=== PATIENT | male | born 1970 | race Caucasian/White ===

== ENCOUNTER 2025-03-30 00:26 | Day surgery (SDC) | payer BC, SELFPAY ==
[2025-03-26 14:15] VITALS: BMI 29.9
--- OUTSIDE RECORDS SUMMARY | 2025-03-30 00:30 | XMS_ITS | Patient Health Record ---
Author Organization [facility] Address [address] [facility] [address] [place] [address] Care Team Providers Care Assistant Nurse Manager Name Role Phone [employer] Unavailable [phone] Reason For Referral No Information Plan Of Treatment No Information
--- OUTSIDE RECORDS SUMMARY | 2025-03-30 00:30 | XMS_ITS | Data Portability ---
Author Organization [place] [facility] [employer], Main Office Address [address] [place] [address] Assessment Encounter Date Assessment Date Assessment LastModified by Organization Details LastModified Time 02/01/2023 02/01/2023 Ofloxacin eyedrops blood work alcohol and tobacco cessation congratulated him on tobacco cessation blood work reviewed and ordered follow-up in 6 months no eye contacts for 2 week [id number] Not available 02/01/2023 15:40:19 Plan of Treatment Reminders Order Date Submit Date Provider Last Modified By Organization Details Last Modified Time Details Appointments None recorded . Lab CBC w/ auto diff 023 02/02/20 23 [email or web address] [facility] (Lab), [address] [place], [address], 4 12:23:00 lipid panel, serum 023 02/02/20 23 [email or web address] [address] [facility] (Lab), [address] [place], [address], 4 12:23:01 CMP, serum or plasma 023 02/02/20 [email or web address] [address] [facility] (Lab), [address] [place], [address], 4 12:23:01 Referral None recorded . Procedures None recorded . Surgeries None recorded . Imaging None recorded . Medication Orders None recorded . Patient TargetsNo targets recorded. Patient InstructionsNo instructions recorded. Reason for Referral None Reported. Results Created Date Observation Date Name Description Value Unit Range Abnormal Flag Note LastModifiedBy Organization Detail LastModifiedTime 06/27/19 22 06/27/2021 PSA SCREE N PSA medicare screen 2.70 NG/mL 0.00-4 .00 Not Available [facility] (Lab) [address] [place], [address], 06/27/2021 16:44:30 06/27/19 22 06/27/2021 LIPID PANEL cholesterol 115 mg/dL 140-19 9 low NIH DELBERT NSUS RECOM MENDA TION FOR ALEX STERO L: ADULT CHILD LOW RISK: <200 <170 BORDE RLINE : <200- 239 ----- HIGH RISK: >240 >200 Not Available [facility] (Lab) [address] [place], [address], 06/27/2021 16:19:23 06/27/19 22 06/27/2021 LIPID PANEL triglyceride s 77 mg/dL 0-150 NIH DELBERT NSUS REPOR T RECOM MENDA TION FOR TRIGL YCERI NIRMAL: ADULT CHILD LOW RISK: <150 ----- BODER LINE: 150-1 99 ----- HIGH RISK: >200 ----- Not Available [facility] (Lab) [address] [place], [address], 06/27/2021 16:19:23 06/27/19 22 06/27/2021 LIPID PANEL HDL cholesterol 37 mg/dL 40- low Not Available [facility] (Lab) [address] [place], [address], 06/27/2021 16:19:23 06/27/19 22 06/27/2021 LIPID PANEL LDL cholesterol, calculated 63 mg/dL 0-130 NIH DELBERT NSUS REPOR T RECOM MENDA TIONS FOR LDL: ADULT CHILD LOW RISK <130 <110 (OPTI MAL LDL) <100 ----- BORDE RLINE : 130-1 59 ----- HIGH RISK: >160 >130 A TRIGL YCERI DE RESUL T >400 INVAL IDATE S THE CALCU LATIO N FOR LDL FRACT IONAT ION - THE LDL RESUL T WILL NOT BE REPOR DAY. Not Available [facility] (Lab) [address] [place], [address], 06/27/2021 16:19:23 06/27/19 22 06/27/2021 COMPR EHENS BINH METAB OLIC PANEL sodium 141 mmol/ L 137-14 5 Not Available [facility] (Lab) [address] [place], [address], 06/27/2021 16:19:19 06/27/19 22 06/27/2021 COMPR EHENS BINH METAB OLIC PANEL potassium 4.0 mmol/ L 3.5-5. 1 Not Available [facility] (Lab) [address] [facility] [place], [address], 06/27/2021 16:19:19 06/27/19 22 06/27/2021 COMPR EHENS BINH METAB OLIC PANEL chloride 103 mmol/ L 98-107 Not Available [facility] (Lab) [address] [place], [address], 06/27/2021 16:19:19 06/27/19 22 06/27/2021 COMPR EHENS BINH METAB OLIC PANEL carbon dioxide 28 mmol/ L 22-30 Not Available [facility] (Lab) [address] [place], [address], 06/27/2021 16:19:19 06/27/19 22 06/27/2021 COMPR EHENS BINH METAB OLIC PANEL agap 14.0 mmol/ L 14-22 Not Available [facility] (Lab) [address] [place], [address], 06/27/2021 16:19:19 06/27/19 22 06/27/2021 COMPR EHENS BINH METAB OLIC PANEL glucose 98 mg/dL 70-99 Not Available [facility] (Lab) [address] [place], [address], 06/27/2021 16:19:19 06/27/19 22 06/27/2021 COMPR EHENS BINH METAB OLIC PANEL BUN 9 mg/dL 8-19 Not Available [facility] (Lab) [address] [place], [address], 06/27/2021 16:19:19 06/27/19 22 06/27/2021 COMPR EHENS BINH METAB OLIC PANEL creatinine 1.07 mg/dL 0.66-1 .25 Not Available [facility] (Lab) [address] [place], [address], 06/27/2021 16:19:19 06/27/19 22 06/27/2021 COMPR EHENS BINH METAB OLIC PANEL GFR >60 Refer ence Range : Counce ge GFR Healt hy Adult : >60 mL/mi n/1.7 3 m2 Chron ic Kidne y Disea se: 15-60 mL/mi n/1.7 3 m2 Kidne y Failu re: <15/m L/min /1.73 m2 www.n iddk. nih.g ov The MDRD study equat ion has not been valid ated in child hamilton <18 years of age; pregn ant women ; the elder ly >85 years of age; or in some racia l or ethni c subgr oups, such as Hisnj nics. Outsi de the valid ated emeka eters , estim ated GFR is less accur ate, requi ring clini jose manuel judgm ent on a case- by-ca se basis . Clini jose manuel inter preta tion for other races and ages must be made by the clini basil. The MDRD study equat ion has not been valid ated for the evalu ation of serum creat inine relat ed to nutri connor l statu s or medic ation usage . For perso ns <18 years of age, a pedia tric GFR calcu lator is avail able on the F websi te: https ://alex kam.o ranjit/pr ofess ional s/kdo qi/gf r_cal culat or Not Available [facility] (Lab) [address] [place], [address], 06/27/2021 16:19:19 06/27/19 22 06/27/2021 COMPR EHENS BINH METAB OLIC PANEL alkaline phosphatase 78 U/L 38-126 Not Available [facility] (Lab) [address] [place], [address], 06/27/2021 16:19:19 06/27/19 22 06/27/2021 COMPR EHENS BINH METAB OLIC PANEL alanine aminotransfe rase 55 U/L 0-[address] [facility] (Lab) [address] [facility] [place], [address], 06/27/2021 16:19:19 06/27/19 22 06/27/2021 COMPR EHENS BINH METAB OLIC PANEL aspartate aminotransfe rase 42 U/L 15-[address] [facility] (Lab) [address] [place], [address], 06/27/2021 16:19:19 06/27/19 22 06/27/2021 COMPR EHENS BINH METAB OLIC PANEL bilirubin, total 0.50 mg/dL 0.20-1 .30 Not Available [facility] (Lab) [address] [place], [address], 06/27/2021 16:19:19 06/27/19 22 06/27/2021 COMPR EHENS BINH METAB OLIC PANEL calcium 8.6 mg/dL 8.4-10 .2 Not Available [facility] (Lab) [address] [place], [address], 06/27/2021 16:19:19 06/27/19 22 06/27/2021 COMPR EHENS BINH METAB OLIC PANEL total protein 6.3 g/dL 6.3-8. 2 Not Available [facility] (Lab) [address] [place], [address], 06/27/2021 16:19:19 06/27/19 22 06/27/2021 COMPR EHENS BINH METAB OLIC PANEL albumin 4.2 g/dL 3.4-5. 0 Not Available [facility] (Lab) [address] [place], [address], 06/27/2021 16:19:19 06/27/19 22 06/27/2021 COMPR EHENS BINH METAB OLIC PANEL globulin 2.1 g/dL 2.6-4. 2 low Not Available [facility] (Lab) [address] [place], [address], 06/27/2021 16:19:19 06/27/19 22 06/27/2021 COMPR EHENS BINH METAB OLIC PANEL A/G ratio 2.0 ratio 1.0-2. 0 Not Available [facility] (Lab) [address] [facility] [place], [address], 06/27/2021 16:19:19 06/27/19 22 06/27/2021 CBC/C OMPLE TE BLD COUNT W/DIF F white blood cells 6.8 x10'3 /uL 4.2-10 .8 Not Available [facility] (Lab) [address] [place], [address], 06/27/2021 16:19:12 06/27/19 22 06/27/2021 CBC/C OMPLE TE BLD COUNT W/DIF F red blood cells 5.01 x10'6 /uL 4.10-5 .80 Not Available [facility] (Lab) [address] [place], [address], 06/27/2021 16:19:12 06/27/19 22 06/27/2021 CBC/C OMPLE TE BLD COUNT W/DIF F hemoglobin 14.6 g/dL 13.2-1 7.0 Not Available [facility] (Lab) [address] [place], [address], 06/27/2021 16:19:12 06/27/19 22 06/27/2021 CBC/C OMPLE TE BLD COUNT W/DIF F hematocrit 44.6 % 39.3-5 0.0 Not Available [facility] (Lab) [address] [place], [address], 06/27/2021 16:19:12 06/27/19 22 06/27/2021 CBC/C OMPLE TE BLD COUNT W/DIF F mean red cell volume 89.0 fL 80.0-9 7.0 Not Available [facility] (Lab) [address] [place], [address], 06/27/2021 16:19:12 06/27/19 22 06/27/2021 CBC/C OMPLE TE BLD COUNT W/DIF F mean red cell hemoglobin 29.1 pg 27.0-3 3.0 Not Available [facility] (Lab) [address] [place], [address], 06/27/2021 16:19:12 06/27/19 22 06/27/2021 CBC/C OMPLE TE BLD COUNT W/DIF F mean RBC HGB concentratio n 32.7 g/dL 31.0-3 6.0 Not Available [facility] (Lab) [address] [place], [address], 06/27/2021 16:19:12 06/27/19 22 06/27/2021 CBC/C OMPLE TE BLD COUNT W/DIF F red cell distribution width 12.8 % 11.8-1 5.5 Not Available [facility] (Lab) [address] [place], [address], 06/27/2021 16:19:12 06/27/19 22 06/27/2021 CBC/C OMPLE TE BLD COUNT W/DIF F platelets 318 x10'3 /uL 150-40 0 Not Available [facility] (Lab) [address] [place], [address], 06/27/2021 16:19:12 06/27/19 22 06/27/2021 CBC/C OMPLE TE BLD COUNT W/DIF F mean platelet volume 8.9 fL 9.0-12 .4 low Not Available [facility] (Lab) [address] [place], [address], 06/27/2021 16:19:12 06/27/19 22 06/27/2021 CBC/C OMPLE TE BLD COUNT W/DIF F neutrophils 53.7 % 39.0-7 2.0 Not Available [facility] (Lab) [address] [place], [address], 06/27/2021 16:19:12 06/27/19 22 06/27/2021 CBC/C OMPLE TE BLD COUNT W/DIF F lymphocytes 31.6 % 16.0-4 7.0 Not Available [facility] (Lab) [address] [place], [address], 06/27/2021 16:19:12 06/27/19 22 06/27/2021 CBC/C OMPLE TE BLD COUNT W/DIF F monocytes 9.4 % 5.0-12 .0 Not Available [facility] (Lab) [address] [place], [address], 06/27/2021 16:19:12 06/27/19 22 06/27/2021 CBC/C OMPLE TE BLD COUNT W/DIF F eosinophils 4.0 % 1.0-7. 0 Not Available [facility] (Lab) [address] [place], [address], 06/27/2021 16:19:12 06/27/19 22 06/27/2021 CBC/C OMPLE TE BLD COUNT W/DIF F basophils 1.0 % 0.0-2. 0 Not Available [facility] (Lab) [address] [place], [address], 06/27/2021 16:19:12 06/27/19 22 06/27/2021 CBC/C OMPLE TE BLD COUNT W/DIF F immature granulocytes 0.3 % 0.00-0 .50 Not Available [facility] (Lab) [address] [facility], [address], 06/27/2021 16:19:12 06/27/19 22 06/27/2021 CBC/C OMPLE TE BLD COUNT W/DIF F neutrophils, absolute count 3.64 x10'3 /uL 1.5-8. 0 Not Available [facility] (Lab) [address] [place], [address], 06/27/2021 16:19:12 06/27/19 22 06/27/2021 CBC/C OMPLE TE BLD COUNT W/DIF F lymphocytes, absolute count 2.14 x10'3 /uL 1.07-3 .43 Not Available [facility] (Lab) [address] [place], [address], 06/27/2021 16:19:12 06/27/19 22 06/27/2021 CBC/C OMPLE TE BLD COUNT W/DIF F monocytes, absolute count 0.64 x10'3 /uL 0.29-0 .99 Not Available [facility] (Lab) [address] [place], [address], 06/27/2021 16:19:12 06/27/19 22 06/27/2021 CBC/C OMPLE TE BLD COUNT W/DIF F eosinophils, absolute count 0.27 x10'3 /uL 0.02-0 .53 Not Available [facility] (Lab) [address] [place], [address], 06/27/2021 16:19:12 06/27/19 22 06/27/2021 CBC/C OMPLE TE BLD COUNT W/DIF F basophils, absolute count 0.07 x10'3 /uL 0.01-0 .08 Not Available [facility] (Lab) [address] [place], [address], 06/27/2021 16:19:12 06/27/19 22 06/27/2021 CBC/C OMPLE TE BLD COUNT W/DIF F immature granulocytes ,absolute 0.02 x10'3 /uL 0.00-0 .05 Not Available [facility] (Lab) [address] [place], [address], 06/27/2021 16:19:12 06/27/19 22 06/27/2021 CBC/C OMPLE TE BLD COUNT W/DIF F nucleated red blood cells 0.0 % -[address] [facility] (Lab) [address] [place], [address], 06/27/2021 16:19:12 06/27/19 22 06/27/2021 CBC/C OMPLE TE BLD COUNT W/DIF F NRBC# 0.00 x10'3 /uL Not Available [facility] (Lab) [address] [place], [address], 06/27/2021 16:19:12 05/29/20 22 05/29/2022 SARS- COV-2 RNA(C OVID1 9),RT -PCR sars-cov-2 RNA(covid19) ,RT-PCR negati ve This test has been autho rized by the FDA under an Emerg ency Use Autho rizat ion (EUA) for use by autho rized labor atori es. Negat binh resul ts do not precl ude SARS- CoV-2 and shoul d not be used as the sole basis for treat ment or other patie nt manag ement decis ions. Test resul ts shoul d be corre lated with the clini jose manuel histo ry, epide miolo gical data, and other data avail able to the clini basil evalu ating the patie nt. Ruben childers w the Fact Sheet s for healt h care provi ders and patie nts at the [facility] bebo: https ://ww w.fda .gov/ media /1363 12/do wnloa d https ://ww w.fda .gov/ media /1363 13/do wnloa d https ://ww w.fda .gov/ media /1421 92/do wnloa d https ://ww w.fda .gov/ media /1421 91/do wnloa d Metho dolog y: Real- Time RT-PC R Not Available [facility] (Lab) [address] [place], [address], 05/29/2022 11:59:04 05/29/20 22 05/29/2022 INFLU GENTRY A/B ANTIG EN RAPID flu A negati ve negati ve Not Available [facility] (Lab) [address] [place], [address], 05/29/2022 11:49:07 05/29/20 22 05/29/2022 INFLU GENTRY A/B ANTIG EN RAPID flu B negati ve negati ve THIS TEST CAN NOT DISTI NGUIS H INFLU GENTRY A VIRUS SUBTY PES. ALSO, PLEAS E NOTE THAT A NEGAT BINH RESUL T DOES NOT EXCLU DE INFLU GENTRY VIRUS INFEC TION. IF MORE CONCL USIVE TESTI NG IS ROSMERY ED, FOLLO W-UP CONFI RMATO RY TESTI NG WITH RT-PC R IS SUGGE STED. Not Available [facility] (Lab) [address] [place], [address], 05/29/2022 11:49:07 05/29/20 22 05/29/2022 INFLU GENTRY A/B ANTIG EN RAPID valid QC positi ve Not Available [facility] (Lab) [address] [place], [address], 05/29/2022 11:49:07 05/29/20 22 05/29/2022 INFLU GENTRY A/B ANTIG EN RAPID lot # [id number] Not Available [facility] (Lab) [address] [place], [address], 05/29/2022 11:49:07 05/29/20 22 05/29/2022 INFLU GENTRY A/B ANTIG EN RAPID source dowel pointer swab Not Available [facility] (Lab) [address], [place], [address], 05/29/2022 11:49:07 10/11/19 22 10/10/2021 XR, hand, 3 or more view [facility] [address], [place] [address] [phone] Patien t Name: PABLO SOUSA Access ion #: [id number] Sex: M : 1970 1 Locati on: RAD Attend ing Physic kristen: TANIYA BHATT Orderi ng Physic kristen: TANIYA BHATT Exam Date: 022 10:07 AM Exam Name: XR HAND BILAT 3V Admitt ing Diagno sis(es ): RADIOL OGY REPORT - FINAL EXAM: XR HAND BILAT 3V HISTOR Y: [id number] -year- old male with bilate ral hand pain and numbne ss, bilate ral hand swelli ng (right greate r than left). COMPAR NOE: None availa ble. TECHNI QUE: Three views of the bilate ral hands were perfor med. FINDIN GS: No acute fractu re is identi fied about either hand. There is mild osteoa rthrit is of the left 1st IP and 5th DIP joints . There is mild osteoa rthrit is of the right 1st MCP and IP joints . There is a left os styloi deum. Page 1 of 2 [facility] Patien t Name: PABLO SOUSA Maddy Access ion #: [id number] Sex: M : 1970 1 Exam Date: 022 10:07 AM Exam Name: XR HAND BILAT 3V Admitt ing Diagno sis(es ): IMPRES FAMILIA: Mild degene rative change s of the hand withou t eviden ce of acute fractu re. Create d and electr onical ly signed by: Naren dillard MD Signed Date: 1:02 PM (CT) Dictat ed by: Naren dillard MD DD: 1:02 PM (CT) DT: 1:02 PM (CT) Page 2 of 2 [id number] [facility] (Imaging) [address] [place], [address], 08/12/2022 14:50:44 01/01/20 22 12/16/2021 elect romyo gram + nerve condu ction study No observ ation record ed. [id number] [facility] [address] [place], [place], [address], 08/12/2022 14:50:44 05/29/20 22 05/29/2022 XR, chest [facility] [address] [place] [address] [phone] Patien t Name: PABLO SOUSA Access ion #: [id number] Sex: M : 1970 2 Locati on: RAD Attend ing Physic kristen: TANIYA BHATT Orderi ng Physic kristen: TANIYA BHATT Exam Date: 2021 10:24 AM Exam Name: XR CHEST 2V Admitt ing Diagno sis(es ): RADIOL OGY REPORT - FINAL EXAM: XR CHEST 2V HISTOR Y: WHEEZI NG COMPAR NOE: None. TECHNI QUE: Two views of the chest were perfor med. FINDIN GS: No pneumo thorax , consol idativ e infilt rates, pleura l effusi ons, or pulmon joey edema. The heart is not enlarg ed. IMPRES FAMILIA: Unrema rkable 2 view chest. Page 1 of 2 [facility] Patiroland t Name: PABLO SOUSA Access ion #: [id number] Sex: M : 1970 2 Exam Date: 2021 10:24 AM Exam Name: XR CHEST 2V Admitt ing Diagno sis(es ): Sherrill d and bairon onical ly signed by: Benoit guido MD Signed Date: 2021 3:18 PM (CT) Dictat ed by: Benoit guido MD DD: 2021 3:18 PM (CT) DT: 2021 3:18 PM (CT) Page 2 of 2 [id number] [facility] (Imaging) [address] [place], [address], 08/12/2022 14:50:44 Result Notes Documentation Provider Name and Address Organization Details Recorded Time Xr, Hand, 3 Or More View : [facility] [address] [place] [address] Patient Name: PABLO SOUSA Sex: M : 1970 Location: [facility] Attending Physician: LEATHA BHATT Ordering Physician: LEATHA BHATT Exam Date: 10/10/2021 10:07 AM Exam Name: XR HAND BILAT 3V Admitting Diagnosis(es): RADIOLOGY REPORT - FINAL EXAM: XR HAND BILAT 3V HISTORY: [id number] male with bilateral hand pain and numbness, bilateral hand swelling (right greater than left). COMPARISON: None available. TECHNIQUE: Three views of the bilateral hands were performed. FINDINGS: No acute fracture is identified about either hand. 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 There is mild osteoarthritis of the right 1st MCP and IP joints. There is a left os styloideum. Page 1 of 2 [facility] Patient Name: PABLO SUOSA Sex: M : 1970 Exam Date: 10/10/2021 10:07 AM Exam Name: XR HAND BILAT 3V Admitting Diagnosis(es): IMPRESSION: Mild degenerative changes of the hand without evidence of acute fracture. Created and electronically signed by: Naren Zelaya MD Signed Date: 10/10/2021 1:02 PM (CT) Dictated by: Naren Zelaya MD (CT) (CT) Page 2 of 2 Not Available [facility] 08/12/2022 14:50:44 Xr, Chest : [facility] [address] [place] [address] Patient Name: PABLO SOUSA Sex: M : 1970 Location: [facility] Attending Physician: LEATHA BHATT Ordering Physician: LEATHA BHATT Exam Date: 05/29/2022 10:24 AM Exam Name: XR CHEST 2V Admitting Diagnosis(es): RADIOLOGY REPORT - FINAL EXAM: XR CHEST 2V HISTORY: WHEEZING COMPARISON: None. TECHNIQUE: Two views of the chest were performed. FINDINGS: No pneumothorax, consolidative infiltrates, pleural effusions, or pulmonary edema. The heart is not enlarged. IMPRESSION: Unremarkable 2 view chest. Page 1 of 2 [facility] Patient Name: PABLO SOUSA Sex: M : 1970 Exam Date: 05/29/2022 10:24 AM Exam Name: XR CHEST 2V Admitting Diagnosis(es): Created and electronically signed by: Benoit Barrera MD Signed Date: 05/29/2022 3:18 PM (CT) Dictated by: Benoit Barrera MD (CT) (CT) Page 2 of 2 Not Available [facility] 08/12/2022 14:50:44 Problems Name Problem SNOMED Code Status Onset Date Resolution Date Notes Provider Name and Address Organization Details Recorded Time Rhinitis 20460205 Active Not Available [facility] 14:47:56 Neck pain 00630532 Active Not Available [facility] 14:47:56 Chronic rhinitis 51275456 Active Not Available [facility] 14:47:56 Gastroeso phageal reflux disease without esophagit is 151792584 Active 2020 Not Available [facility] 14:47:56 Anxiety 76042724 Active 2020 Not Available [facility] 14:47:56 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 2021 Not Available [facility] 3 14:47:56 Eczema 34678909 Active 2021 Not Available [facility] 14:47:56 Essential hypertens ion 18583353 Active 2021 Not Available [facility] 3 14:47:56 Pain of bilateral hands 74403839508 041534 Active 2021 Not Available [facility] 14:47:55 Blepharit is 95548580 Active 2021 Not Available [facility] 3 14:47:56 Bilateral carpal tunnel syndrome 14375152141 146758 Active 2021 nerve conductio n study 2021 Not Available [facility] 3 14:47:55 Gastroeso phageal reflux disease 212632037 Active 2021 Not Available [facility] 3 14:47:55 Hyperlipi demia 78850338 Active 2021 Not Available [facility] 3 14:47:56 Skin lesion 33392637 Active 2021 Not Available [facility] 3 14:47:57 Fever 668749475 Active 2021 Not Available [facility] 3 14:47:56 Upper respirato ry infection 75051646 Active 2021 Not Available [facility] 3 14:47:56 Wheezing 63664694 Active 2021 Not Available [facility] 3 14:47:56 Acute conjuncti vitis of left eye 13201319640 9105 Active 2022 GUIDO Reilly null, [facility] 3 15:47:14 Cough 35063751 Active 2022 Tarah Falk RN null, [place] [facility] 3 18:01:20 Problem Notes None recorded. Procedures Surgical History Date Name Laterality Status Provider Name and Address Organization Details Recorded Time repair of meniscus completed Not Available [facility] 08/12/2022 14:45:21 Ear completed Not Available [facility] 06/2022 14:45:21 Ankle Surgery completed Not Available [facility] 08/12/2022 14:45:21 Imaging Results None recorded. Procedure Notes None recorded. Medical Equipment None Reported. Allergies Allergen ID Allergen Name Allergen Category Reaction Reaction Severity Criticality Documentation Date Start Date Code Code System Note Provider Name and Address Organization Details Recorded Time 97203 Augmentin medicatio n diarrhea Not available Not available 08/12/2022 07648 2 RxNorm Not Available [facility] 14:50:40 Medications Name Sig Start Date Stop Date Status Note LastModified by Organization Details LastModified Time amoxicill in 500 mg capsule Take 1 capsule every 8 hours by oral route for 7 days. active Not Available Not Available No t Available buspirone 5 mg tablet TAKE 1 TABLET BY MOUTH TWICE DAILY 02/28 completed changed to 10mg by Dr Bhatt at visit 02/29/20 21. Not Available Not Available Not Available prednison e 10 mg tablet Take by oral route. take 2f6mrof, 0g9geqh, 1x2 days active Not Available Not Available No t Available atorvasta tin 20 mg tablet TAKE 1 TABLET BY MOUTH EVERY DAY active Not Available Not Available No t Available azithromy ayde 250 mg tablet TAKE 2 TABLETS BY MOUTH TODAY, THEN TAKE 1 TABLET DAILY FOR 4 DAYS DIRECTED active Not Available Not Available No t Available ofloxacin 0.3 % eye drops INSTILL 2 DROPS INTO THE LEFT EYE FOUR TIMES DAILY FOR 7 DAYS active Not Available Not Available No t Available bacitraci n 500 unit/gram eye ointment apply to L upper eyelid BID x 10 days 11/07 completed on back order, patient states that his stye has healed up on his own Not Available Not Available Not Available ondansetr on HCl 4 mg tablet 01/05 completed Not Available Not Available Not Available prednison e 20 mg tablet 3tabs x 3 days, 2tabs x 3days, 1 tab x 3 days 01/05 completed Not Available Not Available Not Available Flonase 50 mcg/actua tion nasal spray,kaveh pension Oran 1 spray every day by intranas al route. 06/10 completed Not Available Not Available Not Available ciproflox acin 500 mg tablet 01/05 completed Not Available Not Available Not Available sulfameth oxazole 800 mg-trimet hoprim 160 mg tablet TK 1 T PO BID 01/05 completed Not Available Not Available Not Available triamcino lone acetonide 0.1 % topical cream APPLY A THIN LAYER TO THE AFFECTED AREA(S) BY TOPICAL ROUTE 1 TIMES PER DAY PRN active Not Available Not Available No t Available meclizine 25 mg tablet TAKE 1 TABLET BY MOUTH EVERY 8 HOURS NEEDED 11/08 completed Not Available Not Available Not Available diazepam 2 mg tablet TAKE 1 TABLET BY MOUTH EVERY 8 HOURS NEEDED 11/08 completed Not Available Not Available Not Available hydrocodo ne 7.5 mg-acetam inophen 325 mg tablet 01/05 completed Not Available Not Available Not Available pantopraz ole 40 mg tablet,de layed release TAKE 1 TABLET BY MOUTH EVERY DAY active Not Available Not Available No t Available buspirone 10 mg tablet TAKE 1 TABLET BY MOUTH TWICE A DAY active Not Available Not Available No t Available losartan 25 mg tablet TAKE 1 TABLET BY MOUTH EVERY DAY active Not Available Not Available No t Available Valtrex 1 gram tablet Take 1 tablet 3 times a day by oral route. 01/05 completed Not Available Not Available Not Available monteluka st 10 mg tablet Take 1 tablet every day by oral route. active Not Available Not Available No t Available Nasonex 50 mcg/actua tion Oran Oran 2 spray(s) EVERY DAY by intranas al route. 06/28 completed Not Available Not Available Not Available amoxicill in 875 mg-potass ium clavulana te 125 mg tablet Take 1 tablet every 12 hours by oral route for 10 days. 02/05 completed Not Available Not Available Not Available neomycin 3.5 mg/g-poly myxin B 10,000 unit/g-de xameth 0.1 % eye oint APPLY A SMALLL AMOUNT ON EYELIDS BID UTD 01/05 completed Not Available Not Available Not Available Nasacort 01/05 completed Not Available Not Available Not Available Zyrtec 2021 active Not Available Not Available Not Avai lable Xhance 93 mcg/actua tion breath activated aerosol 06/10 completed Not Available Not Available Not Available aspirin 81 mg capsule Take 1 capsule every day by oral route. 2021 active Not Available Not Available Not Avai lable Vitals Date Recorded Body mass index (BMI) Body height Heart rate Body temperature Body weight Systolic And Diastolic Provider Name and Address Organization Details Last Updated DateTime 2 31.6 kg/m2 167.64 cm 62 /min 96.4 [degF] 06941.1 g 110/60 mm[Hg] Not Available [facility] 3 14:47:21 Date Recorded Body mass index (BMI) Body height Heart rate Body temperature Body weight Systolic And Diastolic Provider Name and Address Organization Details Last Updated DateTime 3 32.8 kg/m2 167.64 cm 67 /min 98 [degF] 27349.2 5 g 116/70 mm[Hg] Not Available [facility] 3 14:47:21 Date Recorded Body mass index (BMI) Body height Heart rate Body temperature Body weight Systolic And Diastolic Provider Name and Address Organization Details Last Updated DateTime 2 31.6 kg/m2 167.64 cm 66 /min 97.8 [degF] 03274.1 g 110/60 mm[Hg] Not Available [facility] 3 14:47:21 Date Recorded Body mass index (BMI) Body height Heart rate Body temperature Body weight Systolic And Diastolic Provider Name and Address Organization Details Last Updated DateTime 2 31.2 kg/m2 167.64 cm 68 /min 97.2 [degF] 69344.3 3 g 124/82 mm[Hg] Not Available [facility] 3 14:47:21 Date Recorded Body height Body mass index (BMI) Body weight Body temperature Heart rate Systolic And Diastolic Provider Name and Address Organization Details Last Updated DateTime 3 167.64 cm 31.6 kg/m2 28919.1 g 98.5 [degF] 71 /min 110/78 mm[Hg] Tarah ring RN [place] [facility] 3 14:52:57 Date Recorded Body mass index (BMI) Body height Heart rate Body temperature Body weight Systolic And Diastolic Provider Name and Address Organization Details Last Updated DateTime 2 31.6 kg/m2 167.64 cm 68 /min 97.3 [degF] 43838.1 g 112/80 mm[Hg] Not Available [facility] 14:47:21 Social History Question Answer Notes LastModified by Organization Details LastModified Time Tobacco Smoking Status Former Smoker quit 06/13/20 09 Not Available [facility] 08/12/2022 14:45:16 Do You Have An Advance Directive? No MIGRATION.030 [id number] Information not available 08/12/2022 What Is Your Level Of Caffeine Consumption? Moderate MIGRATION.030 [id number] Information not available 08/12/2022 How Much Tobacco Do You Chew? None MIGRATION.030 [id number] Information not available 08/12/2022 In The 14 Days Before Symptom Onset, Have You Had Close Contact With A Laboratory-confi rmed COVID-19 While That Case Was Ill? No MIGRATION.030 [id number] Information not available 08/12/2022 In The 14 Days Before Symptom Onset, Have You Had Close Contact With A Person Who Is Under Investigation For COVID-19 While That Person Was Ill? No MIGRATION.030 [id number] Information not available 08/12/2022 What Type Of Diet Are You Following? REGULAR MIGRATION.030 [id number] Information not available 08/12/2022 Which Illicit Or Recreational Drugs Have You Used? None MIGRATION.030 272657 Information not available 08/12/2022 What Is The Highest Grade Or Level Of School You Have Completed Or The Highest Degree You Have Received? [id number] MIGRATION.030 [id number] Information not available 08/12/2022 Have There Been Any Changes To Your Family Or Social Situation? No MIGRATION.030 [id number] Information not available 08/12/2022 What Is The Fluoride Status Of Your Home? Unknown MIGRATION.030 053490 Information not available 08/12/2022 When Did You Quit Smoking? 11-15yearssincelast cigarette MIGRATION.030 272886 Information not available 08/12/2022 Are There Any Guns Present In Your Home? No MIGRATION.030 [id number] Information not available 08/12/2022 Do You Use Insect Repellent Routinely? No MIGRATION.0301 [id number] Information not available 08/12/2022 Where Do You Live? SingleLevelHouse MIGRATION.0301 [id number] Information not available 08/12/2022 Do You Have A Medical Power Of Waiter/Waitress Captain? No MIGRATION.0301 [id number] Information not available 08/12/2022 What Was The Date Of Your Most Recent Tobacco Screening? 02/01/2023 Information not available 02/01/2023 Do You Have Any Pets? Yes MIGRATION.0301 [id number] Information not available 08/12/2022 What Is Your Relationship Status? MIGRATION.0301 [id number] Information not available 08/12/2022 Do You Use Your Seat Belt Or Car Seat Routinely? Yes MIGRATION.0301 [id number] Information not available 08/12/2022 Do You Have Smoke And Carbon Monoxide Detectors In Your Home? Yes MIGRATION.0301 989189 Information not available 08/12/2022 Are You Passively Exposed To Smoke? No MIGRATION.0301 [id number] Information not available 08/12/2022 Are There Any Smokers In Your House? No MIGRATION.0301 483109 Information not available 08/12/2022 How Much Tobacco Do You Smoke? No MIGRATION.0301 [id number] Information not available 08/12/2022 What Types Of Sporting Activities Do You Participate In? None MIGRATION.0301 369505 Information not available 08/12/2022 Do You Use Sunscreen Routinely? No MIGRATION.0301 349192 Information not available 08/12/2022 Has Tobacco Cessation Counseling Been Provided? No MIGRATION.0301 [id number] Information not available 08/12/2022 Have You Recently Traveled Abroad? No MIGRATION.0301 [id number] Information not available 08/12/2022 Do You Have Any Dietary Restrictions? No MIGRATION.0301 968811 Information not available 08/12/2022 Sex: Male Functional Status Question Answer Note LastModified by Organizat ion Details LastModified Time Do you use any illicit or recreational drugs? No MIGRATION.[id number] Information not available 08/12/2022 Do you or have you ever used any other forms of tobacco or nicotine? No MIGRATION.[id number] 3350 Information not available 08/12/2022 What is your level of alcohol consumption? Occasional Information not available 02/01/2023 Do you or have you ever used smokeless tobacco? 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 Never used electronic cigarettes MIGRATION.437340 8903 Information not available 08/12/2022 What is your exercise level? Heavy MIGRATION.526069 4907 Information not available 08/12/2022 Mental Status Question Answer Note LastModified by Organizat ion Details LastModified Time Do you feel stressed (tense, restless, nervous, or anxious, or unable to sleep at night)? [id number] MIGRATION.[id number] Information not available 08/12/2022 Family History Relationship Description Onset Age of this Age Resolved Age Notes LastModified by Organization Details LastModified Time Brother Hereditary disease MIGRATION.303 [id number] Not available 08/12/2022 14:45:22 Brother Rheumatoid arthritis MIGRATION.599 [id number] Not available 08/12/2022 14:45:22 Maternal Grandfather Hypertensive disorder MIGRATION.325 [id number] Not available 08/12/2022 14:45:22 Maternal Grandmother Hypertensive disorder MIGRATION.986 [id number] Not available 08/12/2022 14:45:22 Medical History Condition Response NERVE DISEASE N BLINDNESS N RHEUMATIC FEVER N KIDNEY STONES N BLADDER PROBLEMS N MRSA N OTHER # 1 N POLIO N LUNG DISEASE/DISORDER N COPD N RADIATION / CHEMOTHERAPY N Other # 2 N BLOOD DISEASES N EAR OR HEARING PROBLEMS N MUMPS N DEPRESSION (INCLUDING POST ) N BOWEL PROBLEMS N STROKE/TIA N ULCERS N BENIGN PROSTATIC HYPERPLASIA N MEASLES N MYOCARDIAL INFARCTION N OBESITY N GERD/NAUSEA Y ANEURYSM N URINARY/BLADDER/KIDNEY PROBLEMS N CORONARY ARTERY DISEASE (CAD) N ADDICTION CONCERNS N Impotence N ENDOMETRIOSIS N USE OF BLOOD THINNERS N SKIN PROBLEMS N GASTROINTESTINAL DISORDER N PERIPHERAL VASCULAR DISEASE N MUSCLE,JOINT OR BONE PROBLEMS N GASTROINTESTINAL BLEEDING N BLOOD CLOTS N ASTHMA N CATARACTS N ERECTILE DYSFUNCTION N VARICOSITIES N GI PROBLEMS N Low Testosterone N INFERTILITY N AIDS/HIV N CHEMOTHERAPY / RADIATION N LIVER DISEASE N MALE HYPOGONADISM N HYPERTENSION Y Deficiency N TOURETTE'S N ANXIETY DISORDER N BLOOD TRANSFUSION N ANEMIA/BLOOD DISORDER N CHRONIC EAR INFECTIONS N BRONCHITIS N TUBERCULOSIS N GLAUCOMA N FOOT PROBLEM N DIVERTICULITIS N SLEEP APNEA N CHICKENPOX N INFECTIOUS DISEASE N PROSTATE N HEART ARRHYTHMIA N INSOMNIA N HIGH CHOLESTEROL / HYPERLIPIDEMIA N EYE PROBLEMS N HYPERTHYROIDISM N EDEMA N CHRONIC PAIN SYNDROME N HYPOTHYROIDISM N CAROTID BLOCKAGE N CONSTIPATION N BACK / NECK PROBLEMS Y HAVE YOU BEEN HOSPITALIZED OR SEEN IN [facility] IN THE PAST YEAR ? N ATHEROSCLEROSIS N BREAST PROBLEMS N DIALYSIS N ECZEMA N OSTEOPOROSIS N ARTHRITIS N APPENDICITIS N DIABETES, TYPE N BAD TEETH N ENT N HEARTBURN / REFLUX N AUTISM SPECTRUM DISORDER (ASD) N HEPATITIS / LIVER DISEASE N GOUT N SLEEP DISORDER N ALZHEIMER'S DISEASE N Brain Problems N DEMENTIA N HERPES N SEIZURES/EPILEPSY N HEADACHES/MIGRAINES N VASCULAR DISEASE N PACEMAKER N Blood Disorder N DIZZINESS Y HEART DISEASE/HEART PROBLEMS N KIDNEY DISEASE N MULTIPLE SCLEROSIS N CANCER: SPECIFY N CARDIAC ARRHYTHMIA N ATRIAL FIBRILLATION N Gall Stones N PULMONARY EMBOLISM N AUTOIMMUNE DISEASE N Immunizations Vaccine Type Date Status Note Provider Nam e and Address Organization Details Recorded Time COVID-19, mRNA, LNP-S, PF, 30 mcg/0.3 mL dose 04/14/2021 completed Not Available [facility] 3 14:50:35 COVID-19, mRNA, LNP-S, PF, 30 mcg/0.3 mL dose 06/21/2020 completed Not Available [facility] 3 14:50:35 COVID-19, mRNA, LNP-S, PF, 30 mcg/0.3 mL dose 06/04/2020 completed Not Available [facility] 3 14:50:35 Past Encounters Encounter ID Performer Location Encounter Start Date Encounter Closed Date Diagnosis/Indication Diagnosis SNOMED-CT Code Diagnosis ICD10 Code Diagnosis IMO Codes Diagnosis Note [id number] Leatha Bhatt MD [facility] Internal Med [facility] 15 [address] [facility], [facility] [address] [place] [address] 10/15/2020 00:00:00 10/15/2020 20:33:08 [id number] Leatha Bhatt MD [facility] Internal Med [facility] [address] [address] 11/08/2020 00:00:00 11/10/2020 15:01:07 [id number] Leatha Bhatt MD [facility] Internal Med [facility] [address] [address] 11/29/2020 00:00:00 12/07/2020 13:35:55 [id number] Leatha Bhatt MD [facility] Internal Med [facility] [address] [place] [address] [address] [address] 02/28/2021 00:00:00 02/28/2021 22:39:13 [id number] Leatha Bhatt MD [facility] Internal Med [facility] [address] [place] [address] [address] [address] 06/27/2021 00:00:00 07/06/2021 21:36:29 [id number] Leatha Bhatt MD [facility] Internal Med [facility] [address] [place] [address] [address] [address] 10/10/2021 00:00:00 10/11/2021 11:23:13 [id number] Leatha Bhatt MD [facility] Internal Med [facility] [address] [address] 10/29/2021 00:00:00 10/29/2021 21:12:39 [id number] Leatha Bhatt MD [facility] Internal Med [facility] [address] [place], [place] [address]nishant., [address] [address] 02/06/2022 00:00:00 02/06/2022 11:26:02 [id number] Leatha Bhatt MD S_[facility] Internal Med [facility] [address] [place] [address], [address] [address] 02/01/2023 14:37:07 02/01/2023 15:34:10 Essential hypertension 81604665 I10 Anxiety 33431685 F41.9 Love's esophagus 3029 [address]6024 K22.70 Health Concerns Section Related Observation LastModified by Organization Detai ls LastModified Time None Recorded Concern Status LastModified by Organization Details LastModified Time None Recorded Advance Directives Directive N: Payers Insurance Date Sequence Insurance Name Policy Number Policy Rashid Covered Member ID Rashid Member ID Guarantor Name 07/20/2023 1 [facility] ([facility]) [id number] Pablo Sousa [id number] Pablo Sousa Notes Date Note Type Note Provider Name and Address Organization Details Recorded Time 02/01/2023 text/html GERD with Love's esophagus no complaints anxiety stable hypertension no headache or dizziness. Couple of days left eye red itchy matting no visual disturbance Leatha Bhatt MD [address] [place] [address], [facility] [address], [place], [address], [facility] 02/01/2023 15:40:35
[2025-03-30 12:06] VITALS: BP 107/69; PULSE 58; RESP 18; TEMP 36.2; O2SAT 100
[2025-03-30] MEDS: SIMETHICONE ORAL SUSPENSION 20 MG/0.3 ML 30 ML BOTTLE 1.8 ML PO (12:11)
[2025-03-30] MEDS: LACTATED RINGERS 1,000 ML 150 ML IV CONT (12:25)
--- NOTE | 2025-03-30 13:08 | WPDANESEPPF ---
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 Patient Data Age: 54 Gender: M Height: 1.68 m Weight: 84 kg Last Vital Signs Temp 36.2 C L 03/30/25 12:06 Pulse 58 L 03/30/25 12:06 Resp 18 03/30/25 12:06 BP 107/69 03/30/25 12:06 Pulse Ox 100 03/30/25 12:06 O2 Del Method Room Air 03/30/25 12:06 Allergies Allergy/AdvReac Type Severity Reaction Status Date / Time AMOXICILLIN TRIHYDRATE AdvReac Mild vomiting Uncoded 08/31/17 08:34 POTASSIUM CLAVULANATE AdvReac Mild vomiting Uncoded 08/31/17 08:34 Home Medications ?Medication ?Instructions ?Recorded ?Confirmed ?Type aspirin 81 mg chewable tablet 81 mg PO DAILY 03/26/25 03/26/25 History (Aspirin Childrens) atorvastatin 20 mg tablet 20 mg PO QPM 03/26/25 03/26/25 History buspirone 10 mg tablet 10 mg PO DAILY 03/26/25 03/26/25 History cetirizine 10 mg tablet (24Hour 10 mg PO DAILY 03/26/25 03/26/25 History Allergy) losartan 25 mg tablet 25 mg PO DAILY 03/26/25 03/26/25 History pantoprazole 40 mg tablet,delayed 40 mg PO DAILY 03/26/25 03/26/25 History release Patient hx anesthesia problems: none Family hx anesthesia problems: none Results Review: All pre-operative results and documents have been reviewed as part of the pre-operative evaluation. [facility] Past Medical History Medical History (Updated 03/29/25 @ 13:25 by Ameya Cheema DO) Anxiety Love esophagus GERD (gastroesophageal reflux disease) Hyperlipidemia Hypertension Social History Social History Smoking packs per day: 3 Smoking cigarettes per day: 60.0 Years smoked: 29 Smoking pack-years: 87.00 Smoking status: Former smoker Tobacco type: cigarettes Alcohol intake: current Drinks per week: 4 Substance use type: does not use Living arrangements: alone Anes - Eval Final PreProcedure Day of Procedure 03/30/25 13:08 Patient weight: overweight Heart: regular rate and rhythm Lungs: clear to auscultation Airway: Mallampati scale class III Neurological: alert and oriented Last oral intake: >/= 8 hours ASA classification: III Emergent: no Anesthetic plan: proceed Anesthesia type and monitoring: general GIVS and standard monitoring Results Review: All pre-operative results and documents have been reviewed as part of the pre-operative evaluation. Informed Consent: The patient's anesthetic plan and its attendant risks and benefits were discussed with the patient/family/POA. Questions were solicited and answers provided to the satisfaction of the patient/family/POA.
--- NOTE | 2025-03-30 13:37 | PM.IMHP ---
H&P: HPI History of Present Illness Date/Time: 03/30/25 13:37 Chief Complaint: History of Love's esophagus Narrative: The patient has been diagnosed with Love's esophagus several years ago. His last endoscopy was 3 years ago. He has GERD controlled with Prilosec. He is referred today for an EGD. Review of Systems Review of Systems: All systems reviewed & are unremarkable except as noted in HPI and below PMFSH Past Medical History Medical History (Updated 03/30/25 @ 13:38 by Maximo Wheeler MD) Anxiety Love esophagus GERD (gastroesophageal reflux disease) Hyperlipidemia Hypertension Social History Social History Smoking packs per day: 3 Smoking cigarettes per day: 60.0 Years smoked: 29 Smoking pack-years: 87.00 Smoking status: Former smoker Tobacco type: cigarettes Alcohol intake: current Drinks per week: 4 Substance use type: does not use Living arrangements: alone Meds Home Medications and Allergies Home Medications ?Medication ?Instructions ?Recorded ?Confirmed ?Type aspirin 81 mg chewable tablet 81 mg PO DAILY 03/26/25 03/26/25 History (Aspirin Childrens) atorvastatin 20 mg tablet 20 mg PO QPM 03/26/25 03/26/25 History buspirone 10 mg tablet 10 mg PO DAILY 03/26/25 03/26/25 History cetirizine 10 mg tablet (24Hour 10 mg PO DAILY 03/26/25 03/26/25 History Allergy) losartan 25 mg tablet 25 mg PO DAILY 03/26/25 03/26/25 History pantoprazole 40 mg tablet,delayed 40 mg PO DAILY 03/26/25 03/26/25 History release Allergies Allergy/AdvReac Type Severity Reaction Status Date / Time AMOXICILLIN TRIHYDRATE AdvReac Mild vomiting Uncoded 08/31/17 08:34 POTASSIUM CLAVULANATE AdvReac Mild vomiting Uncoded 08/31/17 08:34 Vital Signs Vital Signs - 24 hr 03/30/25 12:06 Temperature 97.1 F L Pulse Rate 58 L Respiratory Rate 18 Blood Pressure 107/69 Pulse Oximetry 100 Oxygen Delivery Room Air Exam Const: General: cooperative and healthy appearing Resp: Effort & Inspection: normal respiratory effort and able to speak in complete sentences Auscultation: clear to auscultation bilaterally Cardio: Rate: regular rate Rhythm: regular rhythm GI: Inspection: normal to inspection GI Palp: No No hepatosplenomegaly present Auscultation: normal bowel sounds Rectal Exam: deferred Skin: General skin exam: normal color Psych: Appearance: grossly normal Mental Status: mental status grossly normal Assessment and Plan Assessment and plan (1) GERD (gastroesophageal reflux disease): Code(s): K21.9 - Gastro-esophageal reflux disease without esophagitis Status: Acute Assessment and Plan: The patient is deemed a good candidate for the procedure. Consent signed. Will proceed. 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
--- NOTE | 2025-03-30 13:53 | S_PTH ---
PATIENT: Yosef Herrera LOC: [facility] U#:[id number] AGE/SX: 54/M ROOM: RE03/30/[address]: Maximo Wheeler MD : 1970 BED: DIS: 03/30/2025 SPEC #: [id number] RECD: 04/02/25 07:45 STATUS: [place] REQ #: [id number] AAKASH: 03/30/25 13:[address]: Maximo Wheeler DEPT: [facility] Surgical RECD BY: Lexie Haley ENTERED: 04/02/25 07:46 SP TYPE: Surgical OTHR DR: Frandy Bhatt, Tissues: A - Esophageal Biopsy Procedures: Hematoxylin and Eosin Stain Gross and Microscopic Level 4
[2025-03-30 13:59] VITALS: BP 99/69; PULSE 84; RESP 22; O2SAT 97
[2025-03-30 14:09] VITALS: BP 106/71; PULSE 71; RESP 16; O2SAT 99
[2025-03-30 14:19] VITALS: BP 120/80; PULSE 61; RESP 23; O2SAT 99
== END 2025-03-30 14:49 | disposition home or self-care (01) ==
PROVIDERS: PCP Internal Medicine; Referring Provider Internal Medicine; Visit Provider Internal Medicine Gastroenterology
PROC: 0DJ08ZZ Inspection of Upper Intestinal Tract, Via Natural or Artificial Opening Endoscopic (ICD-10-PCS; CPT 43235; principal; 2025-03-30 13:30)
DX: K22.70 Barrett's esophagus without dysplasia (principal); K21.9 Gastro-esophageal reflux disease without esophagitis; K44.9 Diaphragmatic hernia without obstruction or gangrene; K29.30 Chronic superficial gastritis without bleeding
CPT/HCPCS: 43235; 88305; J2003; J2704; J7120